=== PATIENT | female | born 1930 | race Caucasian/White ===

== ENCOUNTER 2019-06-17 03:57 | Inpatient (IN) ==
--- NOTE | 2019-06-17 04:05 | Emergency Department Note ---
ED Disposition Clinical Impression: Closed left hip fracture Qualifiers: Encounter type: initial encounter Qualified Code(s): S72.002A - Fracture of unspecified part of neck of left femur, initial encounter for closed fracture Disposition: Admitted As Inpatient Condition on Discharge: Fair - Critical Care Critical Care Time: No Attestation: On 06/17/19, the high probability of a clinically significant, sudden or life threatening deterioration of the following system(s) required my full and direct attention, intervention and personal management. The time I documented below is in addition to time spent performing reported procedures but includes the following listed in this critical care notation. Medical Decision Making - [place] Inquiry Pt receiving controlled substance: Yes [place] was queried for this patient: No Reason not queried -: Emergent pt cond-no time Risks and benefits of using a controlled substance: were not discussed with pt by me Vital Signs: 06/17/19 03:58 Temperature 98.0 F Temperature Source Oral Pulse Rate [Right] 86 Respiratory Rate 18 Blood Pressure [Right Arm] 157/76 H Blood Pressure Mean [Right Arm] 103 Blood Pressure Source [Right Arm] Automatic Cuff Blood Pressure Position [Right Arm] Supine 02 Sat by Pulse Oximetry 96 Oxygen Delivery Method Room Air - Lab Data Lab Results 06/17/19 04:15: WBC 10.7, RBC 4.52, Hgb 12.8, Hct 39.9, MCV 88.3, MCH 28.4, MCHC 32.2, RDW 13.4, Plt Count 207, MPV 6.9 L, Neut % (Auto) 70.9, Lymph % (Auto) 20.2, [place] % (Auto) 7.1, Eos % (Auto) 1.6, Baso % (Auto) 0.4, Neut # (Auto) 7.6, Lymph # (Auto) 2.2, [place] # (Auto) 0.8, Eos # (Auto) 0.2, Baso # (Auto) 0.0 06/17/19 04:15: Sodium 138, Potassium 4.2, Chloride 102, Carbon Dioxide 28, Anion Gap 12.2, BUN 18, Creatinine 0.91, Estimated Creat Clear 45, Estimated GFR 58 L, Est GFR ( Amer) 71, Glucose 106, Calcium 8.9, Total Bilirubin 0.8, AST 18, ALT 17, Alkaline Phosphatase 62, Total Protein 7.3, Albumin 3.5, Globulin 3.8 H, Albumin/Globulin Ratio 0.9 L Result diagrams: 06/17/19 04:15 06/17/19 04:15 Orders (Tests/Meds): ED MEDICATIONS Discontinued Medications Generic Name Dose Route Start Last Admin Trade Name Nan PRN Reason Stop Dose Admin Morphine Sulfate 4 mg 06/17/19 04:11 06/17/19 04:20 Morphine 4mg/Ml Syringe IV 06/17/19 04:12 4 mg ONCE ONE Administration Ondansetron HCl 4 mg 06/17/19 04:11 06/17/19 04:20 Zofran 4mg/2ml Vial IV 06/17/19 04:12 4 mg ONCE ONE Administration ORDERS Category Date Time Status Urinalysis and Microscopic Stat Lab 06/17/19 04:10 Ordered - Radiology Data #1 Image(s): Chest, Hip Image Reviewed: Yes I reviewed the patient's radiology image Hip/femur: Left femoral neck fracture Chest: NAD - ECG Data Tracing #1 EKG interpreted by Trav Rice MD: Rhythm: sinus Rate: 90 [place]: normal Ectopy: none Conduction: normal ST Segment Changes: none T Wave Changes: none Q Waves: none No evidence of acute ischemia or injury - Physician Consults Physician Consulted: Yue Time: 04:35 Reason -: Orthopedic Eval/Care Comment/Response: NPO. No traction. Additional Consult: Ashwini Soto Time: 04:35 Reason -: Admission Comment/Response: Admit orders per ortho. General Adult HPI - General Chief complaint: Fall Stated complaint: Fall Time Seen by Provider: 06/17/19 04:05 Mode of Arrival: EMS Limitations: No Limitations Description of Symptoms (Recalled from ER Triage Doc. by RN): Pt tripped and fell on left hip, left leg shortened, palpable pedal pulses, cap refill WNL - History of Present Illness HPI narrative: The got up to use the bathroom 2 hours ago and fell backwards injuring her left hip. Denies any other pain. No head or neck injury. No injury to arms. - Related Data Home Medications Medication Instructions Recorded Confirmed Gabapentin [Gabapentin 300mg Cap] 300 mg PO HS 06/17/19 06/17/19 Levothyroxine Sodium 50 mcg PO DAILY 06/17/19 06/17/19 [Levothyroxine 50mcg (0.05mg) Tab] Simvastatin 40 mg PO DAILY 06/17/19 06/17/19 Allergies Allergy/AdvReac Type Severity Reaction Status Date / Time No Known Allergies Allergy Verified 06/17/19 04:[address] [facility] History - Hepatitis A Screen Drug use history?: No High risk sexual behaviors?: No History of sexually transmitted infection?: No Currently employed?: No Childcare worker?: No Do you have indoor plumbing?: Yes Do you have electricity?: Yes Attestation statement:: This patient has been screened for Hepatitis A risk factors. I have reviewed the patient's past medical history: Yes Medical History: Denies:: Diabetes Mellitus Type 1, Diabetes Mellitus Type 2, Internal Pace maker Other Surgeries: No: Pacemaker - Social History Alcohol Intake: never Occupational Status: retired ROS Obtained: Yes All systems reviewed & no additional complaints - Cardiovascular Cardiovascular: Denies chest pain - Respiratory Respiratory: No dyspnea - Gastrointestinal Gastrointestingal: Denies: abdominal pain, vomiting - Musculoskeletal Musculoskeletal: Reports as per HPI, Denies neck pain - Neurologic Neurologic: Denies headache(s), Denies numbness, Denies weakness Physical Exam - General General appearance: alert, in no apparent distress - Head Head exam: atraumatic, normocephalic - Eye Eye exam: Present: normal appearance, EOMI - ENT ENT exam: Present: mucous membranes moist - Neck Neck exam: Present: normal inspection, trachea midline. Absent: tenderness - Chest Chest inspection: Present: normal inspection, symmetric chest wall rise - Respiratory Respiratory exam: Present: normal lung sounds bilaterally. Absent: respiratory distress - Cardiovascular Cardiovascular exam: Present: regular rate, normal rhythm, normal heart sounds - Abdominal Exam Abdominal exam: Present: soft, normal bowel sounds. Absent: distention, tenderness - Extremities Exam Extremities exam: Present: tenderness (lateral left hip), normal capillary refill, other (2+ pedal pulses) - Neurological Exam Neurological exam: Present: alert, oriented X3, CN II-XII intact. Absent: motor sensory deficit - Psychiatric Psychiatric exam: Present: normal affect, normal mood - Skin Skin exam: Present: warm, dry
[2019-06-17 04:32] LABS: Basophils % 0.4 % (0.1-2.0); Eosinophils # 0.2 K/mm3 (0.0-0.4); Eosinophils % 1.6 % (0.1-12.0); Hematocrit 39.9 % (37.0-47.0); Hemoglobin 12.8 g/dL (12.2-16.2); Lymphocytes # 2.2 K/mm3 (0.7-4.5); Lymphocytes % 20.2 % (10-50); Mean Corpuscular HGB Conc 32.2 g/dL (31.8-35.4); Mean Corpuscular Volume 88.3 fl (81-99); Mean Platelet Volume 6.9 fl (7.4-10.4); Monocytes # 0.8 K/mm3 (0.1-1.0); Monocytes % 7.1 % (1.7-9.3); Neutrophils # 7.6 K/mm3 (1.8-7.8); Neutrophils % 70.9 % (37.0-80.0); Platelet Count 207 K/mm3 (142-424); Red Blood Count 4.52 M/mm3 (4.20-5.40); Red Cell Distribution Width 13.4 % (11.5-17.5); White Blood Count 10.7 K/mm3 (4.8-10.8)
[2019-06-17 04:42] LABS: Albumin Level 3.5 gm/dL (3.4-5.0); Albumin/Globulin Ratio 0.9 (1.1-1.8); Anion Gap 12.2 mEq/L (5-15); Bilirubin,Total 0.8 mg/dL (0.2-1.0); Calcium 8.9 mg/dL (8.5-10.1); Globulin 3.8 gm/dl (1.3-3.2); Total Protein,Serum 7.3 gm/dL (6.4-8.2)
[2019-06-17 05:07] LABS: Microscopic, Urine URINE MICROSCOPIC (MICROSCOPIC)
[2019-06-17 05:08] LABS: Appearance,Urine CLEAR (Clear); Bilirubin,Urine Negative (Negative); Blood, Urine Negative (Negative); Color,Urine YELLOW (Yellow); Glucose,Urine (UA) Negative (Negative); Ketones,Urine Negative (Negative); Leukocyte Esterase,Urine Negative (Negative); PH,Urine 5.5 (5.0-8.5); Protein,Urine Negative (Negative); Urobilinogen,Urine 0.2 EU/dl (0.2)
[2019-06-17 05:27] LABS: Bacteria,Urine Trace /lpf; WBC,Urine Occasional #/hpf (0-3)
--- NOTE | 2019-06-17 07:29 | Pharmacy Consult Notes ---
[facility] Pharmacy VTE Monitoring - Patient Demographics Admission date: 06/16/19 Report Date: 06/17/19 Time: 07:29 Allergies/Adverse Reactions: Patient Allergies No Known Allergies Allergy (Verified 06/17/19 04:03) Height: 1.55 m Weight: 65.346 kg Patient Problems: Current Active Problems Closed left hip fracture (Acute) - VTE Risk Labs: VTE Related Lab Results Hgb 12.8 g/dL (12.2-16.2) 06/17/19 04:15 Hct 39.9 % (37.0-47.0) 06/17/19 04:15 Plt Count 207 K/mm3 (142-424) 06/17/19 04:15 BUN 18 mg/dL (7-18) 06/17/19 04:15 Creatinine 0.91 mg/dL (0.55-1.02) 06/17/19 04:15 Estimated Creat Clear 45 mL/min (50-200) 06/17/19 04:15 Was VTE Risk Assessment Performed: Yes VTE Score: 1 VTE Risk Level: Very Low Risk Clinical Trial Participant: No - Prophylaxis VTE Prophylaxis Ordered?: Yes Types of VTE Prophylaxis: TEDS Knee High
--- NOTE | 2019-06-17 08:04 | History & Physical Report ---
*Admission Date: 06/16/19 *Chief complaint: Left hip pain after fall *History of present illness: 88-year-old female with hypothyroidism, hyperlipidemia presented to the emergency department earlier this morning after a fall at home when she lost her balance and injured her left hip. Patient presented to the emergency department and was found to have left hip fracture. She has been admitted for orthopedic consultation and surgery. Patient denies chest pain, shortness of breath. She has no personal medical history of cardiac or respiratory diseases. She has had one prior broken bone and that was her left arm [facility] History I have reviewed the patient's past medical history: Yes Medical History: Reports:: Cancer (skin), Hyperlipidemia Denies:: Diabetes Mellitus Type 1, Diabetes Mellitus Type 2, Internal Pacemaker, MRSA *Have you ever received a pneumonia vaccine?: No *Have you received a flu vaccine this season?: No Other Medical History: Reports: Hypothyroidism Other Surgeries: Yes: No Previous Surgery. No: Pacemaker Amputation: No Fractures: Yes (left arm) - *Social History Educational Level: Attended High School Smoking Status: Never smoker Alcohol Intake: never *Occupational Status:: retired Housing: house Household Members: none *Travel in the last 8 weeks: None Family Hx:: Diabetes Review of Systems - Constitutional Denies body ache(s), Denies fever(s) - *Cardiovascular Denies chest pain, Denies chest pain at rest, Denies shortness of breath - *Respiratory Denies chest congestion, Denies cough, Denies shortness of breath - *Gastrointestinal Denies abdominal pain - *Neurologic Denies headache(s), Denies numbness, Denies weakness Meds Home Medications Medication Instructions Recorded Confirmed Type Gabapentin [Gabapentin 300mg Cap] 900 mg PO HS 06/17/19 06/17/19 History Levothyroxine Sodium 50 mcg PO DAILY 06/17/19 06/17/19 History [Levothyroxine 50mcg (0.05mg) Tab] Simvastatin 40 mg PO DAILY 06/17/19 06/17/19 History Allergies Allergy/AdvReac Type Severity Reaction Status Date / Time No Known Allergies Allergy Verified 06/17/19 04:03 Exam Vital signs and Labs for Last 24 Hours: Temp Pulse Resp BP Pulse Ox 98.2 F 87 16 127/64 96 06/17/19 05:21 06/17/19 05:21 06/17/19 05:21 06/17/19 05:21 06/17/19 05:49 Laboratory Results - last 24 hr 06/17/19 04:15: WBC 10.7, RBC 4.52, Hgb 12.8, Hct 39.9, MCV 88.3, MCH 28.4, MCHC 32.2, RDW 13.4, Plt Count 207, MPV 6.9 L, Neut % (Auto) 70.9, Lymph % (Auto) 20.2, [place] % (Auto) 7.1, Eos % (Auto) 1.6, Baso % (Auto) 0.4, Neut # (Auto) 7.6, Lymph # (Auto) 2.2, [place] # (Auto) 0.8, Eos # (Auto) 0.2, Baso # (Auto) 0.0 06/17/19 04:15: Sodium 138, Potassium 4.2, Chloride 102, Carbon Dioxide 28, Anion Gap 12.2, BUN 18, Creatinine 0.91, Estimated Creat Clear 45, Estimated GFR 58 L, Est GFR ( Amer) 71, Glucose 106, Calcium 8.9, Total Bilirubin 0.8, AST 18, ALT 17, Alkaline Phosphatase 62, Total Protein 7.3, Albumin 3.5, Globulin 3.8 H, Albumin/Globulin Ratio 0.9 L 06/17/19 05:03: Urine Color Yellow, Urine Appearance Clear, Urine pH 5.5, Ur Specific [place] 1.010, Urine Protein Negative, Urine Glucose (UA) Negative, Urine Ketones Negative, Urine Blood Negative, Urine Nitrate Negative, Urine Bilirubin Negative, Urine Urobilinogen 0.2, Ur Leukocyte Esterase Negative, Urine WBC Occasional, Urine Bacteria Trace I & O for Last 24 hours: Intake & Output 06/14/19 06/15/19 06/16/19 06/17/19 11:59 11:59 11:59 11:59 Output Total 550 / 550 Balance -550 / -550 Weight 144 lb 1 oz Narrative: Patient is in no distress. She is laying comfortably in bed. She is wearing her glasses. Oropharynx is moist and clear. Neck is without lymphadenopathy or carotid bruits. Lungs are clear to auscultation. Heart has a regular rate and rhythm. Abdomen is soft and nontender. Left leg is shortened. She is neurovascularly intact in the foot. Assessment and Plan (1) Closed left hip fracture Current visit: Yes Status: Acute Qualifiers: Encounter type: initial encounter Qualified Code(s): S72.002A - Fracture of unspecified part of neck of left femur, initial encounter for closed fracture Category: Medical Code(s): S72.002A - Fracture of unspecified part of neck of left femur, initial encounter for closed fracture - Assessment and plan all Dx Assessment and Plan for all problems:: Orthopedic consultation and surgery today
--- NOTE | 2019-06-17 10:34 | Electrocardiograph Report ---
APPROVED REPORT Exam: Resting ECG HR:90 bpm ECG Measurements Heart Rate 90 AXES DC 144 P 68 QRSd 86 QRS 31 QT 366 T61 QTc 447 <Conclusion> Normal sinus rhythm Normal ECG Electronically signed by : Alex Maradiaga, 06/17/2019 10:33:58
--- NOTE | 2019-06-17 10:39 | Consult Report ---
*Admission Date: 06/16/19 *Reason for consult:: L hip fracture *History of present illness: Mrs. Moise is a very pleasant 88-year-old female admitted overnight after a fall at home that resulted in a left hip fracture. She got up in the middle of the night, around 3 AM, to use the restroom. She typically keeps a walker next to her bed for these instances, but rather than hold onto her bed frame and walker for support as she typically does, she lost her balance and fell onto the left hip. She denies dizziness, lightheadedness, chest pain, shortness of breath, abdominal pain or any other preceding symptoms. She has never injured this hip before and has never had surgery in her lifetime. She recently lost her in March 2019 and currently lives alone. She is able to ambulate independently without any assistive device. Her baseline level of health has been good today and she is only taking simvastatin, gabapentin, and levothyroxine at baseline. She has no known drug allergies. She reports pain only in the left hip and denies loss of consciousness during the fall. She has slight numbness in the left leg but motor function is intact. Review of Systems - Review of Systems Review of systems:: pertinent systems reviewed and negative unless documented below - *Neurologic Denies headache(s), Denies numbness, Denies weakness [facility] History I have reviewed the patient's past medical history: Yes Medical History: Reports:: Cancer (skin), Hyperlipidemia Denies:: Diabetes Mellitus Type 1, Diabetes Mellitus Type 2, Internal Pacema ker, MRSA *Have you ever received a pneumonia vaccine?: No *Have you received a flu vaccine this season?: No Other Medical History: Reports: Hypothyroidism Other Surgeries: Yes: No Previous Surgery. No: Pacemaker Amputation: No Fractures: Yes (left arm) - *Social History Educational Level: Attended High School Smoking Status: Never smoker Alcohol Intake: never *Occupational Status:: retired Housing: house Household Members: none *Travel in the last 8 weeks: None Family Hx:: Diabetes Meds Home Medications Medication Instructions Recorded Confirmed Type Gabapentin [Gabapentin 300mg Cap] 900 mg PO HS 06/17/19 06/17/19 History Levothyroxine Sodium 50 mcg PO DAILY 06/17/19 06/17/19 History [Levothyroxine 50mcg (0.05mg) Tab] Simvastatin 40 mg PO DAILY 06/17/19 06/17/19 History Allergies Allergy/AdvReac Type Severity Reaction Status Date / Time No Known Allergies Allergy Verified 06/17/19 04:03 Exam Vital signs and Labs for Last 24 Hours: Temp Pulse Resp BP Pulse Ox 98.0 F 88 18 124/67 98 06/17/19 08:00 06/17/19 08:00 06/17/19 08:00 06/17/19 08:00 06/17/19 08:00 Laboratory Results - last 24 hr 06/17/19 04:15: WBC 10.7, RBC 4.52, Hgb 12.8, Hct 39.9, MCV 88.3, MCH 28.4, MCHC 32.2, RDW 13.4, Plt Count 207, MPV 6.9 L, Neut % (Auto) 70.9, Lymph % (Auto) 20.2, [place] % (Auto) 7.1, Eos % (Auto) 1.6, Baso % (Auto) 0.4, Neut # (Auto) 7.6, Lymph # (Auto) 2.2, [place] # (Auto) 0.8, Eos # (Auto) 0.2, Baso # (Auto) 0.0 06/17/19 04:15: Sodium 138, Potassium 4.2, Chloride 102, Carbon Dioxide 28, Anion Gap 12.2, BUN 18, Creatinine 0.91, Estimated Creat Clear 45, Estimated GFR 58 L, Est GFR ( Amer) 71, Glucose 106, Calcium 8.9, Total Bilirubin 0.8, AST 18, ALT 17, Alkaline Phosphatase 62, Total Protein 7.3, Albumin 3.5, Globulin 3.8 H, Albumin/Globulin Ratio 0.9 L 06/17/19 05:03: Urine Color Yellow, Urine Appearance Clear, Urine pH 5.5, Ur Specific [place] 1.010, Urine Protein Negative, Urine Glucose (UA) Negative, Urine Ketones Negative, Urine Blood Negative, Urine Nitrate Negative, Urine Bilirubin Negative, Urine Urobilinogen 0.2, Ur Leukocyte Esterase Negative, Urine WBC Occasional, Urine Bacteria Trace I & O for Last 24 hours: Intake & Output 06/14/19 06/15/19 06/16/19 06/17/19 11:59 11:59 11:59 11:59 Intake Total 0 / 0 Output Total 550 / 550 Balance -550 / -550 Weight 144 lb 1 oz - Constitutional no acute distress, average body habitus - *Routine HEENT Exam Head: Present: normocephalic Eye: Present: EOMI ENT: Present: mucous membranes moist - *Routine Respiratory Exam Present: CTA bilaterally. Absent: wheezes - *Routine Cardiovascular Exam Present: RRR - *Routine Abdominal Exam Present: soft. Absent: tenderness - *Routine Exam Comments: zamarripa catheter to gravity with clear yellow urine - *Routine Extremities Exam Comments: LLE shortened and externally rotated no ecchymosis, erythema, lacerations/abrasions or other wounds L hip moderate tenderness to palpation over L hip; ROM deferred no tenderness over L knee/ankle +DF/PF/EHL LLE SILT distally LLE in all distributions palpable pedal pulses LLE, foot warm/well-perfused L calf soft, non-tender - *Routine Skin Exam Present: intact. Absent: wounds, ecchymosis - *Routine Neurological Exam Present: alert, oriented X3, moving all extremities, normal tone, hearing grossly intact, normal speech. Absent: sensory deficit, motor deficit, altered mental status Results - Labs Result Diagrams: 06/17/19 04:15 06/17/19 04:15 Labs: Abnormal lab results 06/17/19 06/17/19 Range/Units 04:15 04:15 MPV 6.9 L (7.4-10.4) fl Estimated GFR 58 L (>60) ml/min Globulin 3.8 H (1.3-3.2) gm/dl Albumin/Globulin Ratio 0.9 L (1.1-1.8) H & H 06/17/19 Range/Units 04:15 Hgb 12.8 (12.2-16.2) g/dL Hct 39.9 (37.0-47.0) % All other labs normal. - Diagnostic results Hip x-ray: image reviewed (mildly displaced L femoral neck fracture ) Assessment and Plan (1) Femoral neck fracture Current visit: Yes Status: Acute Category: Medical Code(s): S72.009A - Fracture of unspecified part of neck of unspecified femur, initial encounter for closed fracture - Assessment and plan all Dx Assessment and Plan for all problems:: 88yo F with L femoral neck fracture -- I discussed treatment options with the patient and her children, who were present at bedside. I recommended L hip hemiarthroplasty and described the procedure as well as expected recovery period. I also discussed the risks of the procedure, which include but are not limited to: bleeding, infection, fracture, dislocation of prosthesis, persistent pain/numbness or limp, need for assistive device after surgery, and the risks of anesthesia. The patient vocalized understanding and provided informed consent. -- medically cleared by Dr. Soto, has been NPO since admission -- to OR today for L hip hemiarthroplasty
--- NOTE | 2019-06-17 14:05 | Progress Note ---
[facility] Anesthesia Checklist - Patient Identification Patient Identification: Arm Band, Verbal (Name & ) - Structural Data Admitted From: Inpatient Planned Operative Procedure/s: Left hemiarthroplasty Consent for Planned Operative Procedure(s) Verified: Yes Verified Documents: Surgical Consent, History and Physical - NPO Status Verified Time NPO: 00:00 - Chart Verification Results Verified: CBC, BMP, UA - Additional verifications Anesthesia Reactions: No - Airway Assessment C-Spine Mobility Assessed: Yes TMJ Mobility Assessed: Yes Dentition: Poor Dentition - Neurological Assessment Level of Consciousness: Awake, Alert, Appropriate, Follows Commands Hx Seizures: No Numbness or tingling in extremities: No - Anesthesia Plan Anesthesia Risk discussed: Yes Anesthesia Plan: Verified ASA Class: II Anesthesia Type: Spinal [facility] History I have reviewed the patient's past medical history: Yes Medical History: Reports:: Cancer (skin), Hyperlipidemia Denies:: Diabetes Mellitus Type 1, Diabetes Mellitus Type 2, Internal Pacemaker, MRSA *Have you ever received a pneumonia vaccine?: No *Have you received a flu vaccine this season?: No Other Medical History: Reports: Hypothyroidism Anesthesia experience/problems:: no complications Other Surgeries: Yes: No Previous Surgery. No: Pacemaker Amputation: No Fractures: Yes (left arm) - *Social History Educational Level: Attended High School Smoking Status: Never smoker Alcohol Intake: never Substance Use Type: denies use *Occupational Status:: retired Housing: house Household Members: none *Travel in the last 8 weeks: None Family Hx:: Diabetes
--- NOTE | 2019-06-17 16:56 | Progress Note ---
[facility] Anesthesia Record Part I Intake, IV Amount: 1,300 Estimated blood loss (mL): 500 Urine output (mL): 600 Blood Products used (#): none Blood Pressure: 92/47 SaO2: 94 Pulse Rate: 109 Respiratory Rate: 14 Temperature: 98.7 F Patient is:: Drowsy, Nasal O2, Oral/Nasal airway, Stable Stable to PACU at:: 16:47
--- NOTE | 2019-06-17 16:57 | Progress Note ---
[facility] Anesthesia Record Part II Discharge Time: 17:17 Destination: Medical Surgical Department PACU nurse assessment reviewed?: Yes Patient Condition:: Good Anesthesia Complications:: None Swallowing reflex intact?: Yes Cyanosis?: No
--- NOTE | 2019-06-17 22:05 | Operative Note ---
Date of procedure: 06/17/19 Pre-op Diagnosis:: LEFT femoral neck fracture Post-op Diagnosis:: LEFT femoral neck fracture Procedure performed:: LEFT hip hemiarthroplasty Surgeon:: Shiloh Turner MD Miter Grinder Operator(s):: Annalise Marina FURNITURE RESTORER:: Salvatore Cronin Anesthesia: MAC, spinal Estimated blood loss (mL): 200 Clinical Note:: Mrs. Moise is a very pleasant 88-year-old female admitted overnight after a fall at home that resulted in a left hip fracture. She got up in the middle of the night, around 3 AM, to use the restroom. She typically keeps a walker next to her bed for these instances, but rather than hold onto her bed frame and walker for support as she typically does, she lost her balance and fell onto the left hip. She denies dizziness, lightheadedness, chest pain, shortness of breath, abdominal pain or any other preceding symptoms. She has never injured this hip before and has never had surgery in her lifetime. She recently lost her in March 2019 and currently lives alone. She is able to ambulate independently without any assistive device. Her baseline level of health has been good today and she is only taking simvastatin, gabapentin, and levothyroxine at baseline. She has no known drug allergies. She reports pain only in the left hip and denies loss of consciousness during the fall. She has slight numbness in the left leg but motor function is intact. I discussed treatment options with the patient and her children, who were present at bedside. I recommended L hip hemiarthroplasty and described the procedure as well as expected recovery period. I also discussed the risks of the procedure, which include but are not limited to: bleeding, infection, fracture, dislocation of prosthesis, persistent pain/numbness or limp, need for assistive device after surgery, and the risks of anesthesia. The patient vocalized understanding and provided informed consent. Operative findings:: IMPLANTS: Welda Secur-Fit Advanced femoral stem (132 degree neck angle); size 8 bipolar head: 43mm outer diameter (26mm inner head component with +0mm offset) Operative note:: The patient was identified in preoperative holding and the L hip signed by myself. She was then taken to the operating room where 1g Ancef was infused intravenously and spinal anesthesia administered with MAC. Once the patient was sedated, she was placed in the right lateral decubitus position with a ac bag positioner, and the left hip prepped and draped in the usual sterile fashion. Timeout was performed, identifying the correct patient, correct procedure and correct site. The procedure was begun by making a longitudinal, curvilinear incision over the posterolateral aspect the the left hip, centered over the greater trochanter. Subcutaneous tissue was dissected with cautery until fascia was encountered. The fascia was incised in line with the shaft of the femur distally and curved proximally; fibers of the gluteus mirna were bluntly spread with finger dissection. Charnley retractor was placed under the fascia. The hip joint was vi sualized and there was moderate fracture hematoma present. This was evacuated and the short external rotators identified. The piriformis was tagged and reflected off the femur. Underlying joint capsule was seen to have a rent from the fracture; capsulotomy was completed and leaflets tagged. Corkscrew was inserted into the femoral head through the fracture site, and the femoral head was removed intact; it measured around 43mm in diameter. A size 43mm femoral head trial was placed into the acetabulum and found to fit well; 44 was trialed and felt to be too large. Oscillating saw was then used to clean up the femoral neck fracture site; the neck was resected at the level of one fingerbreadth above the lesser trochanter. Box osteotome was used to remove bone proximally in the femoral neck/greater trochanter and create a lateralized starting point for my broach. Canal finder was passed to find/open the femoral canal. Size 0 broach was then passed, taking care to retain the patient's natural femoral anteversion. Broaches of increasing size were sequentially passed; a size 6 was to small and was able to be fully seated/buried. A size 7 fit better but had a few millimeter wiggle room in the anterior/posterior direction. I felt the Accolade stem was not filling the proximal canal well and so I switched to the Secur-Fit Advanced fit & fill stem. The appropriate reamers and broaches were used to prep the canal for this stem, and a size 8 stem felt to fit the best. Trial head was placed and the hip reduced and taken through a range of motion; it was found to be stable in full extension and did not dislocate until around 70-80 degrees internal rotation with the hip flexed to 90 degrees. All trial implants were removed, the wound irrigated with pulsivac saline, and the final components were placed: size 8 femoral stem with standard neck, 43mm bipolar head (+0 mm offset). The head was impacted into place and the hip reduced. Piriformis and capsule were repaired and the wound closed in a layered fashion using angel on the skin. Sterile dressing was applied to the hip and an abduction pillow placed between the patient's legs. She was then awoken and transferred to her bed; she was taken to PACU in good condition. There were no complications during this case. Tourniquet time (min): 0 Condition: stable Disposition: PACU Specimens:: left femoral head Complications:: none
[2019-06-18 06:13] LABS: Basophils % 0.2 % (0.1-2.0); Eosinophils # 0.1 K/mm3 (0.0-0.4); Eosinophils % 0.5 % (0.1-12.0); Hematocrit 35.4 % (37.0-47.0); Hemoglobin 11.2 g/dL (12.2-16.2); Lymphocytes % 4.9 % (10-50); Mean Corpuscular HGB Conc 31.7 g/dL (31.8-35.4); Mean Corpuscular Volume 89.8 fl (81-99); Monocytes # 1.7 K/mm3 (0.1-1.0); Monocytes % 8.5 % (1.7-9.3); Platelet Count 164 K/mm3 (142-424); Red Blood Count 3.94 M/mm3 (4.20-5.40); Red Cell Distribution Width 13.4 % (11.5-17.5); White Blood Count 19.7 K/mm3 (4.8-10.8)
[2019-06-18 06:38] LABS: Albumin Level 2.6 gm/dL (3.4-5.0); Albumin/Globulin Ratio 0.7 (1.1-1.8); Anion Gap 8.8 mEq/L (5-15); Bilirubin,Total 0.6 mg/dL (0.2-1.0); Calcium 8.1 mg/dL (8.5-10.1); Globulin 3.5 gm/dl (1.3-3.2); Total Protein,Serum 6.1 gm/dL (6.4-8.2)
--- NOTE | 2019-06-18 06:54 | Progress Note ---
Internal Medicine - PN: Subj *Date: 06/18/19 *Time: 06:53 Interval history: Patient had surgery yesterday afternoon. Overnight she slept intermittently but had some nausea as well as pain. She admits this morning she is rather drowsy. Pain is controlled at this time. Exam Vital signs and Labs for Last 24 Hours: Temp Pulse Resp BP Pulse Ox 98.2 F 116 H 20 129/70 100 06/18/19 04:00 06/18/19 04:00 06/18/19 04:00 06/18/19 04:00 06/18/19 04:00 Laboratory Results - last 24 hr 06/18/19 05:57: WBC 19.7 H D, RBC 3.94 L, Hgb 11.2 L, Hct 35.4 L, MCV 89.8, MCH 28.5, MCHC 31.7 L, RDW 13.4, Plt Count 164, MPV 7.0 L, Neut % (Auto) 86.0 H, Lym ph % (Auto) 4.9 L, [place] % (Auto) 8.5, Eos % (Auto) 0.5, Baso % (Auto) 0.2, Neut # (Auto) 17.0 H, Lymph # (Auto) 1.0, [place] # (Auto) 1.7 H, Eos # (Auto) 0.1, Baso # (Auto) 0.0 06/18/19 05:57: Sodium 132 L, Potassium 3.8, Chloride 98, Carbon Dioxide 29, Anion Gap 8.8, BUN 8 D, Creatinine 0.76, Estimated Creat Clear 42, Estimated GFR 72, Est GFR ( Amer) 87 D, Glucose 156 H, Calcium 8.1 L, Total Bilirubin 0.6, AST 21, ALT 12 D, Alkaline Phosphatase 50, Total Protein 6.1 L, Albumin 2.6 L D, Globulin 3.5 H, Albumin/Globulin Ratio 0.7 L I & O for Last 24 hours: Intake & Output 06/15/19 06/16/19 06/17/19 06/18/19 11:59 11:59 11:59 11:59 Intake Total 0 / 0 1482 / 1482 Output Total 550 / 550 425 / 425 Balance -550 / -550 1057 / 1057 Weight 144 lb 1 oz 151 lb 4 oz Narrative: Patient appears comfortable in bed. Lung exam overall is clear. Heart has a rapid rate and rhythm. Abdomen is soft and nontender Assessment and Plan (1) Femoral neck fracture Current visit: Yes Status: Acute Category: Medical Code(s): S72.009A - Fracture of unspecified part of neck of unspecified femur, initial encounter for closed fracture (2) Leukocytosis Current visit: Yes Status: Acute Category: Medical Code(s): D72.829 - Elevated white blood cell count, unspecified I am going to get a chest x-ray this morning due to the increase in the patient's white blood cell count.
[2019-06-18 07:03] LABS: Lymphocytes % 9 % (10-50); Monocytes % 8 % (2-9); Neutrophils % 78 % (42-76); Total Cells Counted 100
--- NOTE | 2019-06-18 12:46 | Progress Note ---
Subjective Date: 06/18/19 Time: 09:00 Principal diagnosis: L hip fracture Interval history: The patient is doing well this morning, though very sleepy. Her last dose of pain medication was IV morphine around 11pm last night. She is arousable and answers questions/follows commands. Reports some throat soreness and nausea/vomiting. Little PO intake overnight, but has tried broth and toast. No complaints of chest pain or shortness of breath, afebrile. PN: Obj Ex Vital signs: Temp Pulse Resp BP Pulse Ox 99.4 F 118 H 22 122/86 90 L 06/18/19 08:00 06/18/19 08:00 06/18/19 08:00 06/18/19 08:00 06/18/19 08:00 - Constitutional no acute distress - Routine HEENT Exam Head: Present: normocephalic Eye: Present: EOMI ENT: Present: mucous membranes moist - Routine Respiratory Exam Present: CTA bilaterally. Absent: wheezes - Routine Cardiovascular Exam Present: RRR - Routine Abdominal Exam Present: soft. Absent: tenderness - Routine Extremities Exam Comments: L hip dressing c/d/i, minimal strikethrough +DF/PF/EHL LLE SILT distally LLE L calf soft, non-tender; negative Tanner's palpable pedal pulses LLE, foot warm/well-perfused - Urinary Catheter Management Zamarripa Cath placed during this visit: yes Urethral indwelling: No Insertion date: 06/17/19 Insertion time: 05:05 Progress Note: A&P (1) Femoral neck fracture Status: Acute Current Visit: Yes (2) Leukocytosis Status: Acute Current Visit: Yes Assessment and Plan for All Diagnoses:: 88yo F POD 1 s/p L hip hemiarthroplasty for femoral neck fracture -- WBAT LLE, continue PT/OT -- posterior hip precautions, hip abduction pillow in bed -- d/c zamarripa -- finish 24hr radha-op prophy antibiotics -- DVT prophy per PCP; ok with ASA -- continue SCDs, IS -- dispo planning; anticipate SNF placement
--- NOTE | 2019-06-18 15:55 | Pharmacy Consult Notes ---
- Pharmacy Consult Date: 06/18/19 Time: 15:48 Referring provider: DR. AQUINO Reason for Consult:: VANCOMYCIN DOSING Allergies and ADEs:: Allergies Allergy/AdvReac Type Severity Reaction Status Date / Time No Known Allergies Allergy Verified 06/17/19 04:03 Home Medications:: Home Medications Medication Instructions Recorded Confirmed Type Gabapentin [Gabapentin 300mg Cap] 900 mg PO HS 06/17/19 06/17/19 History Levothyroxine Sodium 50 mcg PO DAILY 06/17/19 06/17/19 History [Levothyroxine 50mcg (0.05mg) Tab] Simvastatin 40 mg PO DAILY 06/17/19 06/17/19 History Height: 1.55 m Weight: 68.606 kg Laboratory Results:: Laboratory Results - last 24 hr 06/18/19 05:57: WBC 19.7 H D, RBC 3.94 L, Hgb 11.2 L, Hct 35.4 L, MCV 89.8, MCH 28.5, MCHC 31.7 L, RDW 13.4, Plt Count 164, MPV 7.0 L, Neut % (Auto) 86.0 H, Lymph % (Auto) 4.9 L, [place] % (Auto) 8.5, Eos % (Auto) 0.5, Baso % (Auto) 0.2, Neut # (Auto) 17.0 H, Lymph # (Auto) 1.0, [place] # (Auto) 1.7 H, Eos # (Auto) 0.1, Baso # (Auto) 0.0, Total Counted 100, Neutrophils % (Manual) 78 H, Band Neutrophils % 5.0, Lymphocytes % (Manual) 9 L, Monocytes % (Manual) 8, Platelet Estimate Normal 06/18/19 05:57: Sodium 132 L, Potassium 3.8, Chloride 98, Carbon Dioxide 29, Anion Gap 8.8, BUN 8 D, Creatinine 0.76, Estimated Creat Clear 42, Estimated GFR 72, Est GFR ( Amer) 87 D, Glucose 156 H, Calcium 8.1 L, Total Bilirubin 0.6, AST 21, ALT 12 D, Alkaline Phosphatase 50, Total Protein 6.1 L, Albumin 2.6 L D, Globulin 3.5 H, Albumin/Globulin Ratio 0.7 L Medical History: Reports:: Cancer (skin), Hyperlipidemia Denies:: Diabetes Mellitus Type 1, Diabetes Mellitus Type 2, Internal Pacemaker, MRSA, Seizures Assessment and Plan (1) Femoral neck fracture Current visit: Yes Status: Acute Category: Medical Code(s): S72.009A - Fracture of unspecified part of neck of unspecified femur, initial encounter for closed fracture (2) Leukocytosis Current visit: Yes Status: Acute Category: Medical Code(s): D72.829 - Elevated white blood cell count, unspecified - Assessment and plan all Dx Assessment and Plan for all problems:: BASED ON PATIENT'S FACTORS, RECOMMEND STARTING WITH VANCOMYCIN 1000 MG Q24H AT THIS TIME. PHARMACY WILL FOLLOW DAILY AND ADJUST APPROPRIATE. ADARSH RUANO, PHARMD
[2019-06-19 06:38] LABS: Basophils % 0.1 % (0.1-2.0); Eosinophils % 0.1 % (0.1-12.0); Hematocrit 30.5 % (37.0-47.0); Hemoglobin 10.1 g/dL (12.2-16.2); Lymphocytes # 1.8 K/mm3 (0.7-4.5); Lymphocytes % 9.5 % (10-50); Mean Corpuscular Volume 87.9 fl (81-99); Mean Platelet Volume 7.3 fl (7.4-10.4); Monocytes # 1.7 K/mm3 (0.1-1.0); Neutrophils # 15.2 K/mm3 (1.8-7.8); Neutrophils % 81.3 % (37.0-80.0); Platelet Count 146 K/mm3 (142-424); Red Blood Count 3.48 M/mm3 (4.20-5.40); Red Cell Distribution Width 13.5 % (11.5-17.5); White Blood Count 18.6 K/mm3 (4.8-10.8)
[2019-06-19 06:50] LABS: Anion Gap 9.6 mEq/L (5-15); Calcium 7.8 mg/dL (8.5-10.1)
--- NOTE | 2019-06-19 07:18 | Progress Note ---
Internal Medicine - PN: Subj *Date: 06/19/19 *Time: 07:16 Interval history: Patient slept well overnight. She denies significant pain this morning. She has not urinated since removal of her Penn catheter. She denies bloating. She is passing some gas. She was able to tolerate eating a single cracker. She does admit she feels better this morning than she did at this time yesterday morning Exam Vital signs and Labs for Last 24 Hours: Temp Pulse Resp BP Pulse Ox 98.2 F 113 H 22 125/53 L 91 L 06/19/19 04:00 06/19/19 04:00 06/19/19 04:00 06/19/19 04:00 06/19/19 04:00 Laboratory Results - last 24 hr 06/18/19 17:43: Lactate 1.6 06/19/19 05:58: WBC 18.6 H, RBC 3.48 L, Hgb 10.1 L, Hct 30.5 L, MCV 87.9, MCH 29.0, MCHC 33.0, RDW 13.5, Plt Count 146, MPV 7.3 L, Neut % (Auto) 81.3 H, Lymph % (Auto) 9.5 L, [place] % (Auto) 9.0, Eos % (Auto) 0.1, Baso % (Auto) 0.1, Neut # (Auto) 15.2 H, Lymph # (Auto) 1.8, [place] # (Auto) 1.7 H, Eos # (Auto) 0.0, Baso # (Auto) 0.0 06/19/19 05:58: Sodium 129 L, Potassium 3.6, Chloride 97 L, Carbon Dioxide 26, Anion Gap 9.6, BUN 10, Creatinine 0.68, Estimated Creat Clear 43, Estimated GFR 82, Est GFR ( Amer) 99, Glucose 145 H, Calcium 7.8 L I & O for Last 24 hours: Intake & Output 06/16/19 06/17/19 06/18/19 06/19/19 11:59 11:59 11:59 11:59 Intake Total 0 / 0 2549 / 2549 3223 / 3223 Output Total 550 / 550 425 / 425 450 / 450 Balance -550 / -550 2124 / 2124 2773 / 2773 Weight 144 lb 1 oz 151 lb 4 oz 155 lb 2 oz Narrative: Patient is awake and alert. Color is improved from yesterday. Lungs have faint crackles at the left base. Heart has a regular rate and rhythm. Abdomen is soft with hypoactive bowel sounds Assessment and Plan (1) Femoral neck fracture Current visit: Yes Status: Acute Category: Medical Code(s): S72.009A - Fracture of unspecified part of neck of unspecified femur, initial encounter for closed fracture (2) Leukocytosis Current visit: Yes Status: Acute Category: Medical Code(s): D72.829 - Elevated white blood cell count, unspecified (3) Pneumonia Current visit: Yes Status: Acute Category: Medical Code(s): J18.9 - Pneumonia, unspecified organism - Assessment and plan all Dx Assessment and Plan for all problems:: 1. Continue PT today 2. Continue cefepime and Vanc as well as incentive spirometer 3. Continue Reglan for what would seem to be a mild postoperative ileus. 4. Await labs this a.m. and patient may require reinsertion of Penn catheter
[2019-06-19 08:58] LABS: Hypochromasia 1+; Lymphocytes % 14 % (10-50); Monocytes % 3 % (2-9); Neutrophils % 83 % (42-76); Total Cells Counted 100
--- NOTE | 2019-06-19 13:25 | Progress Note ---
Subjective Date: 06/19/19 Time: 12:00 Principal diagnosis: L hip fracture Interval history: The patient was seen this morning and found to be doing well, though very lethargic and continues to take little po. She has not urinated since her zamarripa was removed yesterday. I saw her again around 12pm and she was still difficult to around and could not follow commands. Her last dose of narcotics was around 11pm on 06/17/2019. PN: Obj Ex Vital signs: Temp Pulse Resp BP Pulse Ox 98.8 F 118 H 22 123/54 L 95 06/19/19 07:54 06/19/19 08:00 06/19/19 07:54 06/19/19 07:54 06/19/19 08:00 - Constitutional no acute distress - Routine HEENT Exam Head: Present: normocephalic Eye: Present: EOMI ENT: Present: mucous membranes moist - Routine Respiratory Exam Present: CTA bilaterally. Absent: wheezes - Routine Cardiovascular Exam Present: RRR - Routine Abdominal Exam Present: soft. Absent: tenderness - Routine Extremities Exam Comments: L hip dressing with mild strikethrough, no erythema, minimal tenderness +DF/PF/EHL LLE spontaneously; difficulty following commands SILT distally LLE L calf soft, non-tender palpable pedal pulses LLE - Routine Skin Exam Absent: erythema - Routine Neurological Exam Present: altered mental status, moving all extremities, normal tone. Absent: sensory deficit, motor deficit - Urinary Catheter Management Zamarripa Cath placed during this visit: yes Urethral indwelling: No Insertion date: 06/17/19 Insertion time: 05:05 Progress Note: A&P (1) Femoral neck fracture Status: Acute Current Visit: Yes (2) Leukocytosis Status: Acute Current Visit: Yes (3) Pneumonia Status: Acute Current Visit: Yes Assessment and Plan for All Diagnoses:: 88yo F POD 2 s/p L hip hemiarthroplasty for femoral neck fracture -- replace zamarripa, send specimen for U/A and culture -- no narcotic medication; tylenol only for pain -- continue PT/OT as able, given patient's current mental status -- dressing change today -- continue medical management per Dr. Soto -- dispo planning: likely to SNF pending improvement in medical status
[2019-06-19 14:07] LABS: Microscopic, Urine URINE MICROSCOPIC (MICROSCOPIC)
[2019-06-19 14:11] LABS: Appearance,Urine CLEAR (Clear); Bilirubin,Urine Negative (Negative); Blood, Urine 1+ (Negative); Color,Urine YELLOW (Yellow); Glucose,Urine (UA) Negative (Negative); Ketones,Urine Negative (Negative); Leukocyte Esterase,Urine Negative (Negative); PH,Urine 5.5 (5.0-8.5); Protein,Urine 1+ (Negative); Specific Gravity, Urine >= 1.030 (1.005-1.030); Urobilinogen,Urine 0.2 EU/dl (0.2)
[2019-06-19 15:15] LABS: Bacteria,Urine 1+ /lpf; WBC,Urine Occasional #/hpf (0-3)
--- NOTE | 2019-06-19 15:20 | Pharmacy Consult Notes ---
- Pharmacy Consult Date: 06/19/19 Time: 15:19 Referring provider: DR. AQUINO Reason for Consult:: VANCOMYCIN TROUGH LEVEL Allergies and ADEs:: Allergies Allergy/AdvReac Type Severity Reaction Status Date / Time No Known Allergies Allergy Verified 06/17/19 04:03 Home Medications:: Home Medications Medication Instructions Recorded Confirmed Type Gabapentin [Gabapentin 300mg Cap] 900 mg PO HS 06/17/19 06/17/19 History Levothyroxine Sodium 50 mcg PO DAILY 06/17/19 06/17/19 History [Levothyroxine 50mcg (0.05mg) Tab] Simvastatin 40 mg PO DAILY 06/17/19 06/17/19 History Height: 1.55 m Weight: 70.364 kg Laboratory Results:: Laboratory Results - last 24 hr 06/18/19 17:43: Lactate 1.6 06/19/19 05:58: WBC 18.6 H, RBC 3.48 L, Hgb 10.1 L, Hct 30.5 L, MCV 87.9, MCH 29.0, MCHC 33.0, RDW 13.5, Plt Count 146, MPV 7.3 L, Neut % (Auto) 81.3 H, Lymph % (Auto) 9.5 L, [place] % (Auto) 9.0, Eos % (Auto) 0.1, Baso % (Auto) 0.1, Neut # (Auto) 15.2 H, Lymph # (Auto) 1.8, [place] # (Auto) 1.7 H, Eos # (Auto) 0.0, Baso # (Auto) 0.0, Total Counted 100, Neutrophils % (Manual) 83 H, Lymphocytes % (Manual) 14, Monocytes % (Manual) 3, Platelet Estimate Normal, Hypochromasia 1+ 06/19/19 05:58: Sodium 129 L, Potassium 3.6, Chloride 97 L, Carbon Dioxide 26, Anion Gap 9.6, BUN 10, Creatinine 0.68, Estimated Creat Clear 43, Estimated GFR 82, Est GFR ( Amer) 99, Glucose 145 H, Calcium 7.8 L 06/19/19 13:30: Urine Color Yellow, Urine Appearance Clear, Urine pH 5.5, Ur Specific [place] >= 1.030, Urine Protein 1+, Urine Glucose (UA) Negative, Urine Ketones Negative, Urine Blood 1+, Urine Nitrate Negative, Urine Bilirubin Negative, Urine Urobilinogen 0.2, Ur Leukocyte Esterase Negative, Urine RBC 3-5, Urine WBC Occasional, Urine Bacteria 1+ 06/19/19 14:34: Vancomycin Trough 3.8 L Medical History: Reports:: Cancer (skin), Hyperlipidemia Denies:: Diabetes Mellitus Type 1, Diabetes Mellitus Type 2, Internal Pacemaker, MRSA, Seizures Assessment and Plan (1) Femoral neck fracture Current visit: Yes Status: Acute Category: Medical Code(s): S72.009A - Fracture of unspecified part of neck of unspecified femur, initial encounter for closed fracture (2) Leukocytosis Current visit: Yes Status: Acute Category: Medical Code(s): D72.829 - Elevated white blood cell count, unspecified (3) Pneumonia Current visit: Yes Status: Acute Category: Medical Code(s): J18.9 - Pneumonia, unspecified organism - Assessment and plan all Dx Assessment and Plan for all problems:: BASED ON TROUGH LEVEL OF 3.8 AFTER ONE DOSE, RECOMMEND CONTINUING CURRENT DOSE OF VANCOMYCIN 1GM EVERY 24 HOURS. PHARMACY WILL CONTINUE TO MONITOR AND WILL ADJUST DOSE APPROPRIATE. -JANI SAAVEDRA, DELPHINED
[2019-06-20 07:17] LABS: Anion Gap 7.3 mEq/L (5-15); Calcium 7.9 mg/dL (8.5-10.1)
--- NOTE | 2019-06-20 07:47 | Progress Note ---
Internal Medicine - PN: Subj *Date: 06/20/19 *Time: 07:44 Interval history: Patient has no complaints this morning and admits she feels well. She denies significant pain. She is tolerated breakfast a little better this morning than yesterday. She still struggled with physical therapy yesterday. She remains quite sleepy and spent a lot of the time yesterday sleeping and slept normally overnight as well. Exam Vital signs and Labs for Last 24 Hours: Temp Pulse Resp BP Pulse Ox 97.9 F 107 H 20 132/63 97 06/20/19 05:03 06/20/19 05:03 06/20/19 05:03 06/20/19 05:03 06/20/19 05:03 Laboratory Results - last 24 hr 06/19/19 05:58: Total Counted 100, Neutrophils % (Manual) 83 H, Lymphocytes % (Manual) 14, Monocytes % (Manual) 3, Platelet Estimate Normal, Hypochromasia 1+ 06/19/19 13:30: Urine Color Yellow, Urine Appearance Clear, Urine pH 5.5, Ur Specific [place] >= 1.030, Urine Protein 1+, Urine Glucose (UA) Negative, Urine Ketones Negative, Urine Blood 1+, Urine Nitrate Negative, Urine Bilirubin Negative, Urine Urobilinogen 0.2, Ur Leukocyte Esterase Negative, Urine RBC 3-5, Urine WBC Occasional, Urine Bacteria 1+ 06/19/19 14:34: Vancomycin Trough 3.8 L I & O for Last 24 hours: Intake & Output 06/17/19 06/18/19 06/19/19 06/20/19 11:59 11:59 11:59 11:59 Intake Total 0 / 0 2549 / 2549 3283 / 3283 2575 / 2575 Output Total 550 / 550 425 / 425 450 / 450 800 / 800 Balance -550 / -550 2124 / 2124 2833 / 2833 1775 / 1775 Weight 144 lb 1 oz 151 lb 4 oz 155 lb 2 oz 156 lb 3 oz Narrative: Patient is awake and alert. Heart rate is mildly tachycardic. Lungs show improvement in the rales in the left base. Neurologically patient has intact sensation in the extremities. She has an intact motor function in the upper extremities and lower extremities. Strength assessment reveals symmetric strength Assessment and Plan (1) Femoral neck fracture Current visit: Yes Status: Acute Category: Medical Code(s): S72.009A - Fracture of unspecified part of neck of unspecified femur, initial encounter for closed fracture (2) Leukocytosis Current visit: Yes Status: Acute Category: Medical Code(s): D72.829 - Elevated white blood cell count, unspecified (3) Pneumonia Current visit: Yes Status: Acute Category: Medical Code(s): J18.9 - Pneumonia, unspecified organism - Assessment and plan all Dx Assessment and Plan for all problems:: 1. Await morning labs 2. Patient will be out of bed to chair today. But I think surgery plus pneumonia has left the patient quite weak I also believe there is a significant element of fear on the patient's part and she will need lots of encouragement. 3. If patient does well today anticipate discharge to [facility] tomorrow
[2019-06-20 07:56] LABS: Basophils % 0.1 % (0.1-2.0); Eosinophils % 0.3 % (0.1-12.0); Hematocrit 28.6 % (37.0-47.0); Lymphocytes # 1.4 K/mm3 (0.7-4.5); Lymphocytes % 10.5 % (10-50); Mean Corpuscular HGB Conc 31.5 g/dL (31.8-35.4); Mean Corpuscular Volume 89.5 fl (81-99); Monocytes % 7.1 % (1.7-9.3); Neutrophils # 11.4 K/mm3 (1.8-7.8); Neutrophils % 82.1 % (37.0-80.0); Platelet Count 130 K/mm3 (142-424); Red Blood Count 3.19 M/mm3 (4.20-5.40); Red Cell Distribution Width 13.2 % (11.5-17.5); White Blood Count 13.8 K/mm3 (4.8-10.8)
--- NOTE | 2019-06-20 14:03 | Progress Note ---
Subjective Date: 06/20/19 Time: 12:00 Principal diagnosis: L hip fracture Interval history: The patient is doing much better today. She is more alert, reports minimal L hip pain and has been eating more. She moved her bowels earlier this morning; zamarripa cath remains in place. No complaints at this time. PN: Obj Ex Vital signs: Temp Pulse Resp BP Pulse Ox 98.7 F 109 H 19 130/63 96 06/20/19 08:00 06/20/19 08:00 06/20/19 08:00 06/20/19 08:00 06/20/19 08:00 - Constitutional no acute distress - Routine HEENT Exam Head: Present: normocephalic Eye: Present: EOMI ENT: Present: mucous membranes moist - Routine Respiratory Exam Present: CTA bilaterally - Routine Cardiovascular Exam Present: RRR - Routine Abdominal Exam Present: soft. Absent: tenderness - Routine Exam Comments: zamarripa to gravity with clear yellow urine - Routine Extremities Exam Comments: L hip dressing with mild strikethrough; dressing removed w/serosanguinous drainage on dressing L hip incision c/d/i with no active drainage, mild periwound ecchymosis but no erythema +DF/PF/EHL LLE SILT distally LLE L calf soft, non-tender SCD in place on RLE palpable pedal pulses LLE - Routine Skin Exam Present: ecchymosis. Absent: erythema - Routine Neurological Exam Present: alert, oriented X3, moving all extremities, normal tone, hearing grossly intact, normal speech. Absent: sensory deficit, motor deficit, altered mental status - Routine Psychiatric Exam Present: normal affect - Urinary Catheter Management Zamarripa Cath placed during this visit: yes Urethral indwelling: No Insertion date: 06/19/19 Insertion time: 13:00 Progress Note: A&P (1) Femoral neck fracture Status: Acute Current Visit: Yes (2) Leukocytosis Status: Acute Current Visit: Yes (3) Pneumonia Status: Acute Current Visit: Yes Assessment and Plan for All Diagnoses:: 88yo F POD 3 s/p L hip hemiarthroplasty for femoral neck fracture -- WBAT LLE, posterior hip precautions, abduction pillow in bed -- continue PT/OT -- d/c zamarriap when deemed medically appropriate by Dr. Soto -- continue SCD RLE, encourage IS 10x/hr -- may be up ad kali *with assistance* -- dispo planning: likely to SNF tomorrow
[2019-06-21 07:26] LABS: Eosinophils # 0.2 K/mm3 (0.0-0.4); Eosinophils % 2.1 % (0.1-12.0); Lymphocytes # 1.4 K/mm3 (0.7-4.5); Red Blood Count 3.56 M/mm3 (4.20-5.40)
[2019-06-21 07:28] LABS: Anion Gap 9.2 mEq/L (5-15); Calcium 8.3 mg/dL (8.5-10.1)
[2019-06-21 07:34] LABS: Basophils % 0.1 % (0.1-2.0); Hematocrit 31.7 % (37.0-47.0); Lymphocytes % 12.9 % (10-50); Mean Corpuscular HGB Conc 31.6 g/dL (31.8-35.4); Mean Corpuscular Volume 89.1 fl (81-99); Mean Platelet Volume 8.1 fl (7.4-10.4); Monocytes # 0.5 K/mm3 (0.1-1.0); Neutrophils # 8.5 K/mm3 (1.8-7.8); Neutrophils % 79.9 % (37.0-80.0); Platelet Count 160 K/mm3 (142-424); Red Cell Distribution Width 13.3 % (11.5-17.5); White Blood Count 10.6 K/mm3 (4.8-10.8)
--- NOTE | 2019-06-21 08:03 | Discharge Summary ---
General - General Admission date:: 06/17/19 Discharge date: 06/21/19 HPI HPI: 88-year-old female with hypothyroidism, hyperlipidemia presented to the emergency department earlier this morning after a fall at home when she lost her balance and injured her left hip. Patient presented to the emergency department and was found to have left hip fracture. She has been admitted for orthopedic consultation and surgery. Patient denies chest pain, shortness of breath. She has no personal medical history of cardiac or respiratory diseases. She has had one prior broken bone and that was her left arm Hospital Course Hospital Course: Patient was admitted on the morning of June 17 and underwent left hemiarthroplasty for her left femoral neck fracture later that same day. Postoperatively physical therapy and occupational therapies were consulted. First day postop patient participated minimally and had trouble moving her lower extremities. As hospitalization progressed her ability to bear weight and ambulate slowly improved. Postoperatively patient did not recover as quickly as anticipated and I believe this is multifactorial.. A chest x-ray revealed a small left lower lobe pneumonia with elevated white blood cell count. Patient never had fever or an oxygen requirement. She was started on broad-spectrum antibiotics. At discharge she will finish a course of Levaquin. Patient had received gabapentin the night of surgery at her intended home dose of 900 mg nightly although she admitted she had only been taking 300 mg nightly. This contributed to sedation the following day. Developed urinary retention. Penn catheter was removed 24 hours postop per protocol. Patient's urine was dark at that time. She remained on IV fluids. Penn catheter had to be reinserted on June 19. Patient's fluids were increased at that time. Urine ultimately became clear. On the day of discharge her Penn catheter was removed Patient was also tachycardic on admission and remained tachycardic throughout hospitalization with her lowest heart rate being recorded in the 90s. She never had chest pain. EKG showed a sinus tachycardia. On June 21 the patient was discharged to [facility]. I am going to hold her gabapentin until she is ambulating better and this may be discontinued altogether as I do believe it contributed to her fall that led to her hip fracture. Postoperatively patient will use aspirin for DVT prophylaxis Mental status: Average Rehab potential: Good Prognosis: Good Objective Vital signs: Temp Pulse Resp BP Pulse Ox 98.0 F 95 H 17 141/67 H 97 06/21/19 04:00 06/21/19 04:00 06/21/19 04:00 06/21/19 04:00 06/21/19 04:00 no acute distress - *Routine Respiratory Exam Present: CTA bilaterally - *Routine Cardiovascular Exam Present: RRR, Normal S1, Normal S2, tachycardia - *Routine Abdominal Exam Present: soft, normoactive bowel sounds. Absent: tenderness - *Routine Extremities Exam Comments: Left hip incision is clean dry and intact. Results Labs on day of discharge: Labs from last 24 hours 06/21/19 06/21/19 06/20/19 06:38 06:38 06:40 WBC 10.6 13.8 H D RBC 3.56 L 3.19 L Hgb 10.0 L D 9.0 L Hct 31.7 L 28.6 L MCV 89.1 89.5 MCH 28.2 28.2 MCHC 31.6 L 31.5 L RDW 13.3 13.2 Plt Count 160 130 L MPV 8.1 8.0 Neut % (Auto) 79.9 82.1 H Lymph % (Auto) 12.9 10.5 [place] % (Auto) 5.0 7.1 Eos % (Auto) 2.1 0.3 Baso % (Auto) 0.1 0.1 Neut # (Auto) 8.5 H 11.4 H Lymph # (Auto) 1.4 1.4 [place] # (Auto) 0.5 1.0 Eos # (Auto) 0.2 0.0 Baso # (Auto) 0.0 0.0 Sodium 131 L Potassium 3.2 L Chloride 96 L Carbon Dioxide 29 Anion Gap 9.2 BUN 8 Creatinine 0.66 Estimated Creat Clear 43 Estimated GFR 85 Est GFR ( Amer) 102 Glucose 131 H Calcium 8.3 L Preliminary micro results at discharge 06/18/19 17:43 Blood Culture - Preliminary Blood NO GROWTH AFTER 48 HOURS 06/18/19 17:43 Blood Culture - Preliminary Blood NO GROWTH AFTER 48 HOURS DS: Diagnosis - Discharge Diagnosis (1) Femoral neck fracture Status: Acute (2) Leukocytosis Status: Acute (3) Pneumonia Status: Acute (4) Postoperative urinary retention Status: Acute (5) Sinus tachycardia Status: Acute Discharge Plan - Patient Discharge Instructions ACTIVITY: Continue current activity DIET: continue same diet Patient Instructions: Hip Fracture, Hip Replacement, DI for Hip Fracture, DI for Hip Replacement, DI for Surgical Site Infection - Follow up Plan Follow up with: Shiloh Turner MD [Physician] - 07/02/19 10:00 am (please arrive about 9:30 for x-ray proir to appointment) Disposition: Xfer SNF Home Medications: Home Medications Medication Instructions Recorded Confirmed Type Gabapentin [Gabapentin 300mg Cap] 900 mg PO HS 06/17/19 06/17/19 History Levothyroxine Sodium 50 mcg PO DAILY 06/17/19 06/17/19 History [Levothyroxine 50mcg (0.05mg) Tab] Simvastatin 40 mg PO DAILY 06/17/19 06/17/19 History Aspirin [Aspirin 325mg Tab] 325 mg PO DAILY #30 tab 06/21/19 Rx Hydrocod/Acet 5/325 mg [[place] 1 tab PO Q4HP PRN #120 tab 06/21/19 Rx 5/325mg tablet] Ondansetron HCl [Ondansetron 4mg 4 mg PO Q6HP PRN #60 tab 06/21/19 Rx Tablet] levoFLOXacin [Levaquin 750mg 750 mg PO Q48H #5 tab 06/21/19 Rx tablet] Prescriptions/Medication Reconciliation: New Hydrocod/Acet 5/325 mg [[place] 5/325mg tablet] 1 tab PO Q4HP PRN #120 tab PRN Reason: Moderate To Severe Pain Ondansetron HCl [Ondansetron 4mg Tablet] 4 mg PO Q6HP PRN #60 tab PRN Reason: Nausea Aspirin [Aspirin 325mg Tab] 325 mg PO DAILY #30 tab levoFLOXacin [Levaquin 750mg tablet] 750 mg PO Q48H #5 tab Continued Simvastatin 40 mg PO DAILY Levothyroxine Sodium [Levothyroxine 50mcg (0.05mg) Tab] 50 mcg PO DAILY Discontinued Gabapentin [Gabapentin 300mg Cap] 900 mg PO HS - Problem Reconciliation Problems Reviewed?: Yes
== END 2019-06-21 11:31 | DRG 469 ==
LOC: ER 03:57 → 2ND 04:38
PROVIDERS: ADMIT Internal Medicine Adolescent Medicine; ATTEND Family Medicine
CPT/HCPCS: 36415; 71010; 71045; 73502; 73552; 80048; 80053; 80202; 81001; 83605; 85007; 85025; 87040; 93005; 96374; 96375; 97110; 97116; 97161; 97165; 97530; 97535; 99284; C1776; J1956; J2405; J3370